=== PATIENT | male | born 1965 | race Asian ===

== ENCOUNTER 2024-09-27 19:29 | Emergency (ER) | payer BC, OTHER ==
[~2024-09-27] VITALS: Ht 170.2 cm; Wt 72.6 kg
[2024-09-27] MEDS: MORPHINE SULFATE 2 MG/1 ML DISP.SYRIN IM ONE (21:14)
[2024-09-27] MEDS: ONDANSETRON HCL 4 MG TABLET PO ONE (21:14)
[2024-09-27] MEDS ORDERED: CYCL5TAB PO (22:16)
[2024-09-27] MEDS ORDERED: ACETAMINOPHEN 500 MG TABLET ONE (22:30)
[2024-09-27] MEDS: ACETAMINOPHEN 500 MG TABLET PO ONE (22:31)
[2024-09-27 22:32] VITALS: BP 145/82; TEMP 98; O2SAT 99
== END 2024-09-27 22:32 | disposition home or self-care (01) ==
LOC: ER 20:00
DX: M54.50 Low back pain, unspecified (principal); E78.5 Hyperlipidemia, unspecified; M10.9 Gout, unspecified
CPT/HCPCS: 72131; A4606; A4663; A9150